=== PATIENT | female | born 2000 | race Caucasian/White ===

== ENCOUNTER 2022-02-23 10:17 | Emergency (ER) | payer OTHER, SELFPAY ==
[2022-02-23 10:25] VITALS: BP 137/87; PULSE 99; RESP 16; TEMP 37.3; O2SAT 99
--- NOTE | 2022-02-23 12:12 | ED.EAR ---
HPI - Ear Problem General Chief complaint: Ear Stated complaint: Ear Pain Time Seen by Provider: 02/23/22 12:13 Source: patient, RN notes reviewed and old records reviewed Mode of arrival: ambulatory Limitations: no limitations History of Present Illness HPI Narrative: 21-year-old female with 2 day history of left ear pain since putting eczema ointment in her left ear. Patient also states there is some ringing in her ear, echoeing,decreased hearing Patient denies any fevers chills or sweats has had some nasal congestion and drainage and also some sore throat.Patient reports that she has taken Ibuprofen and also Mucinex for her symptoms. MD Complaint: ear pain (Left) Severity: moderate Discharge from ear: Reports no Treatment prior to arrival: other (Ibuprofen and Mucinex) Related Data Home Medications Medication Instructions Recorded Confirmed albuterol sulfate 90 mcg/actuation inhalation 02/23/22 aerosol inhaler budesonide-formoterol HFA 160 inhalation 02/23/22 mcg-4.5 mcg/actuation aerosol inhaler (Symbicort) dupilumab 300 mg/2 mL subcutaneous mg subcut 02/23/22 pen injector (Dupixent) fluoxetine 10 mg capsule mg 02/23/22 hydroxyzine HCl 25 mg tablet mg 02/23/22 montelukast 10 mg tablet mg 02/23/22 norgestimate-ethinyl estradiol tablet 02/23/22 0.18 mg/0.215mg/0.25mg-35 mcg(28)tablet (Tri-Sprintec (28)) pantoprazole 40 mg tablet,delayed mg PO 02/23/22 release Allergies Allergy/AdvReac Type Severity Reaction Status Date / Time No Known Allergies Allergy Verified 02/23/22 11:53 Review of Systems Review of Systems: CONSTITUTIONAL: Denies fever, chills, or sweats. EYES: Denies visual changes, redness, or discharge. ENT: Reports rhinorrhea, congestion, sore throat, left otalgia. CARDIOVASCULAR: Denies chest pain, palpitations, or edema. RESPIRATORY: Denies cough or dyspnea. GASTROINTESTINAL: Denies abdominal pain, nausea, vomiting, or diarrhea. GENITOURINARY: Denies dysuria or hematuria. SKIN: Denies rash or itching. MUSCULOSKELETAL: Denies back pain, joint pain, or myalgia. NEUROLOGIC: Denies headache, numbness, or weakness. PSYCHIATRIC: Positive for history of anxiety or depression. All systems reviewed & are unremarkable except as noted in HPI and below PMFSH Past Medical History Medical History (Updated 02/27/22 @ 20:36 by Mahi Montero NP) Allergies Anxiety and depression Asthma Eczema GERD (gastroesophageal reflux disease) Social History Social History (Updated 02/27/22 @ 20:34 by Mahi Montero NP) Smoking status: Never smoker Alcohol intake: unknown Substance use type: does not use Gender identity (if verbalized by the patient): Female Comments At time of signature, agree with nursing past medical, surgical, social and family history. There is no relevant family history pertinent to the presenting complaint Exam Narrative: GENERAL: Well-appearing, well-nourished, and in no acute distress. HEAD: Normocephalic, atraumatic. EYES: PERRLA and EOMI. ENT: Nares clear, no rhinorrhea or epistaxis. Mucous membranes moist.Left TM red and bulging, right TM normal wth good light reflex, throat pink with no lesions or exudates or tonsil enlargement NECK: Supple.no lymphadenopathy CHEST: Clear to auscultation. No respiratory distress.SAO2 99% on room air HEART: Regular rate and rhythm. No murmur heard. Normal peripheral pulses. ABDOMEN: Soft, nontender, nondistended, normal active bowel sounds. EXTREMITIES: Normal range of motion. No edema. SKIN: Warm, dry, no rash flair at this time history of eczema NEURO: No focal deficits. Alert and oriented x3. Course Course Emergency Course: Patient is aware of diagnosis, understands and agrees to treatment plan.? Anticipatory guidance given.? Patient agrees to follow-up as directed and is aware of reasons to seek care at the emergency department. Portions of this record may have been created with voice recognition soft
== END 2022-02-23 12:30 | disposition home or self-care (01) ==
PROVIDERS: Emergency Provider Registered Nurse
DX: H65.02 Acute serous otitis media, left ear (principal); J45.909 Unspecified asthma, uncomplicated; K21.9 Gastro-esophageal reflux disease without esophagitis
CPT/HCPCS: 99213; G0463